=== PATIENT | male | born 1955 | race Asian ===

== ENCOUNTER 2019-01-31 19:06 | Observation (INO) | payer MEDICAID ==
[~2019-01-31] VITALS: Ht 165.1 cm; Wt 71.8 kg
[2019-01-31] MEDS ORDERED: NITROGLYCERIN 2% 1 GM OINT PKT TD STA (21:18)
[2019-01-31] MEDS ORDERED: ASPIRIN 81 MG TAB PO STA (21:18)
[2019-01-31] MEDS ORDERED: NITROGLYCERIN (SL) 0.4 MG TAB SL PRN (21:30)
--- NOTE | 2019-01-31 21:59 | ERD ---
ER Documentation Chief Complaint Chief Complaint cp and sob x 2 days after minimal activity HPI Patient is a 63-year-old male with coronary disease, hypertension, and diabetes who presents with chest pain. The symptoms started 2 days ago. The pain is worsening and left-sided. It radiates on his left arm. He has had no treatment as of yet. Upon review of old medical records this is the patient's first visit to the emergency department. ROS All systems reviewed and are negative except as per history of present illness. PMhx/Soc History of Surgery: Yes (Stentsx3) Hx Cardiac Disorders: Yes (PR, HTN) Hx Alcohol Use: No Hx Substance Use: No Hx Tobacco Use: No Smoking Status: Never smoker FmHx Family History: No coronary disease Physical Exam Vitals Vital Signs Date Temp Pulse Resp B/P (MAP) Pulse Ox O2 O2 Flow FiO2 Time Delivery Rate 01/31/19 78 16 148/78 98 Room Air 21:22 (101) 01/31/19 98.6 78 18 161/76 99 19:33 (104) Physical Exam Const: No acute distress Head: Atraumatic Eyes: Normal Conjunctiva ENT: Normal External Ears, Nose and Mouth. Neck: Full range of motion. No meningismus. Resp: Clear to auscultation bilaterally Cardio: Regular rate and rhythm, no murmurs Abd: Soft, non tender, non distended. Normal bowel sounds Skin: No petechiae or rashes Back: No midline or flank tenderness Ext: No cyanosis, or edema Neur: Awake and alert Psych: Normal Mood and Affect Result Diagram: 01/31/19211701/31/192117 Results 24 hrs Laboratory Tests Test 01/31/19 21:18 White Blood Count 6.4 10^3/ul Red Blood Count 4.72 10^6/ul Hemoglobin 14.6 g/dl Hematocrit 42.1 % Mean Corpuscular Volume 89.2 fl Mean Corpuscular Hemoglobin 30.9 pg Mean Corpuscular Hemoglobin Concent 34.7 g/dl Red Cell Distribution Width 11.7 % Platelet Count 204 10^3/UL Mean Platelet Volume 10.8 fl Immature Granulocytes % 0.500 % Neutrophils % 55.2 % Lymphocytes % 25.2 % Monocytes % 9.1 % Eosinophils % 9.1 % Basophils % 0.9 % Nucleated Red Blood Cells % 0.0 /100WBC Immature Granulocytes # 0.030 10^3/ul Neutrophils # 3.5 10^3/ul Lymphocytes # 1.6 10^3/ul Monocytes # 0.6 10^3/ul Eosinophils # 0.6 10^3/ul Basophils # 0.1 10^3/ul Nucleated Red Blood Cells # 0.0 10^3/ul Sodium Level 139 mmol/L Potassium Level 4.4 mmol/L Chloride Level 103 mmol/L Carbon Dioxide Level 27 mmol/L Anion Gap 9 Blood Urea Nitrogen 12 mg/dl Creatinine 0.87 mg/dl Est Glomerular Filtrat Rate mL/min > 60 mL/min Glucose Level 166 mg/dl Calcium Level 9.9 mg/dl Troponin I < 0.012 ng/ml Current Medications Medications Dose Sig/Adeline Start Time Status Last (Trade) Ordered Route PRN Stop Time Admin Dose Reason Admin Aspirin 162 mg ONCE STAT 01/31/19 DC 01/31/19 (Aspirin) PO 21:18 01/31/19 21:42 21:19 1 inch ONCE STAT 01/31/19 DC 01/31/19 Nitroglycerin TD 21:18 01/31/19 21:43 21:19 (Nitroglyceri n 2% Oint) 1 tab Q5M UP TO 3 01/31/19 01/31/19 Nitroglycerin DOSES PRN 21:30 21:43 SL .CHEST (Nitroglyceri PAIN n (Sl Tab) 0.4 Mg) Procedures/MDM EKG read by me: Rate/Rhythm: Regular rate and rhythm at a normal rate Intervals: Normal Impression: No evidence of ischemia or arrhythmia Chest x-ray read by radiology. Patient is a 63-year-old male presents with multiple cardiac comorbidities. The patient has chest pain. The patient will be admitted to a telemetry observation bed to the care of Dr. Leonard. I am concerned for potential acute coronary syndrome. I doubt pneumonia, pneumothorax, or pulmonary embolism. The patient was given aspirin and nitroglycerin. Departure Diagnosis: Primary Impression: Chest pain Chest pain type: unspecified Qualified Codes: R07.9 - Chest pain, unspecified Condition: WIL Nolen MD January 31, 2019 21:59
[2019-01-31] MEDS ORDERED: ACETAMINOPHEN 325 MG TAB PO PRN (22:00)
[2019-01-31] MEDS ORDERED: ONDANSETRON 4 MG INJ IV PRN (22:00)
[2019-02-01] VITALS (7 sets, daily range): BP systolic 122–146; BP diastolic 68–70; PULSE 65–78; RESP 20; Ht 165.1 cm; Wt 71.8 kg
[2019-02-01] MEDS ORDERED: NACL 0.9% 3 ML SYG IV SCH (00:30)
[2019-02-01] MEDS ORDERED: ALBUTEROL/IPRATROPIUM (NEB) 3 ML AMP HHN PRN (00:30)
[2019-02-01] MEDS ORDERED: ONDANSETRON 4 MG INJ IV PRN (00:30)
[2019-02-01] MEDS ORDERED: NITROGLYCERIN (SL) 0.4 MG TAB SL PRN (00:30)
[2019-02-01] MEDS ORDERED: ACETAMINOPHEN 325 MG TAB PO PRN (00:30)
[2019-02-01] MEDS ORDERED: ATOR40TA68 PO (01:09)
[2019-02-01] MEDS ORDERED: CLOP75TA19 PO (01:09)
[2019-02-01] MEDS ORDERED: OMEP20CA16 PO (01:09)
[2019-02-01] MEDS ORDERED: METF500T24 PO (01:09)
[2019-02-01] MEDS ORDERED: ASPI-535 PO (01:09)
--- NOTE | 2019-02-01 06:29 | HP ---
Date/Time of Note Date/Time of Note DATE: TIME: 23:25 Assessment/Plan VTE Prophylaxis Pharmacological prophylaxis: heparin Lines/Catheters IV Catheter Type (from Nrsg): Saline Lock Assessment/Plan Assessment/Plan 1. Chest pain: Rule out ACS -Admit to telemetry unit -Continue Plavix, aspirin and statin. Add beta-fauzia with parameters. As needed nitro -Serial troponin -2D echo and cardiology consult 2. Type 2 diabetes: Check A1c. Continue metformin 3. Hypertension: Adjust antihypertensive as needed Result Diagram: 02/01/19 0557 01/31/19 2118 Results 24hrs Laboratory Tests Test 01/31/19 21:18 02/01/19 04:07 02/01/19 05:57 White Blood Count 6.4 6.0 Red Blood Count 4.72 4.27 L Hemoglobin 14.6 13.1 L Hematocrit 42.1 38.0 L Mean Corpuscular Volume 89.2 89.0 Mean Corpuscular Hemoglobin 30.9 30.7 Mean Corpuscular Hemoglobin Concent 34.7 34.5 Red Cell Distribution Width 11.7 11.9 Platelet Count 204 178 Mean Platelet Volume 10.8 H 10.9 H Immature Granulocytes % 0.500 H 0.200 Neutrophils % 55.2 56.2 Lymphocytes % 25.2 27.0 Monocytes % 9.1 7.2 Eosinophils % 9.1 H 8.7 H Basophils % 0.9 0.7 Nucleated Red Blood Cells % 0.0 0.0 Immature Granulocytes # 0.030 0.010 Neutrophils # 3.5 3.4 Lymphocytes # 1.6 1.6 Monocytes # 0.6 0.4 Eosinophils # 0.6 H 0.5 Basophils # 0.1 0.0 Nucleated Red Blood Cells # 0.0 0.0 Sodium Level 139 Potassium Level 4.4 Chloride Level 103 Carbon Dioxide Level 27 Anion Gap 9 Blood Urea Nitrogen 12 Creatinine 0.87 Est Glomerular Filtrat Rate mL/min > 60 Glucose Level 166 Calcium Level 9.9 Troponin I < 0.012 < 0.012 Creatine Kinase 44 Creatine Kinase Index 1.8 Creatinine Kinase MB (Mass) 0.77 HPI/ROS Admit Date/Time Admit Date/Time Hx of Present Illness Patient is a 33-year-old male with a history of hypertension, type 2 diabetes and NE/CAD status post stent who presented to ER complaining of chest pain. Pain is mainly left-sided with radiation to left arm and has been going on for about 2 days. In the ER, troponin so far has been negative and EKG without ST-T wave abnormalities PMH/Family/Social Past Medical History Past Surgical Hx: other (HPI) Family History Significant Family History: no pertinent family hx Social History Alcohol Use: none Smoking Status: Never smoker Drug Use: none Exam Constitutional: alert, oriented, well developed Head: normocephalic, atraumatic Eyes: EOMI, PERRL Respiratory: clear to auscultation, normal air movement Cardiovascular: regular rate and rhythm, nl pulses Gastrointestinal: soft, other (Right lower quadrant tenderness elicited on palpation. Patient also with right flank pain) Extremities: normal pulses Medications Current Medications Ondansetron HCl (Zofran Inj) 4 mg ER BRIDGE PRN IV NAUSEA/VOMITING; Start 01/31/19 at 22:00; Stop 02/01/19 at 21:59 Acetaminophen (Tylenol Tab) 650 mg ER BRIDGE PRN PO .MILD PAIN 1-3 OR TEMP; Start 01/31/19 at 22:00; Stop 02/01/19 at 21:59 IV Flush (NS 3 ml) 3 ml PER PROTOCOL IV ; Start 02/01/19 at 00:30 Ondansetron HCl (Zofran Inj) 4 mg Q6H PRN IV NAUSEA/VOMITING; Start 02/01/19 at 00:30 Aspirin (Aspirin) 81 mg DAILY PO ; Start 02/01/19 at 09:00 Nitroglycerin (Nitroglycerin (Sl Tab) 0.4 Mg) 1 tab Q5M PRN SL .CHEST PAIN; Start 02/01/19 at 00:30 Acetaminophen (Tylenol Tab) 650 mg Q6H PRN PO .PAIN 1-3 OR TEMP; Start 02/01/19 at 00:30 Enoxaparin Sodium (Lovenox) 40 mg DAILY SC ; Start 02/01/19 at 09:00 Albuterol/ Ipratropium (Duoneb) 3 ml Q2H RESP THERAPY PRN HHN SHORTNESS OF BREATH; Start 02/01/19 at 00:30 Coded Allergies: No Known Allergy (Unverified , 02/01/19) Social History Smoking Status: Never smoker Exam/Review of Systems Vital Signs Vitals Vital Signs Date Temp Pulse Resp B/P (MAP) Pulse Ox O2 O2 Flow FiO2 Time Delivery Rate 02/01/19 61 16 107/67 98 Room Air 06:12 (80) 01/31/19 98.6 19:33 TERI SIMS MD February 01, 2019 06:29
[2019-02-01] MEDS: ACCU-CHEK XX SCH ×3 (07:00→22:24)
[2019-02-01] MEDS: ASPIRIN 81 MG TAB PO SCH (08:19)
[2019-02-01] MEDS: CLOPIDOGREL 75 MG TAB PO SCH (08:19)
[2019-02-01] MEDS: ENOXAPARIN 40 MG/0.4 ML SYG SC SCH (08:20)
[2019-02-01] MEDS: PANTOPRAZOLE (EC) 40 MG TAB PO SCH (08:20)
[2019-02-01] MEDS: metFORMIN 500 MG TAB PO SCH (08:20)
[2019-02-01] MEDS ORDERED: NON-FORMULARY/PATIENT OWN MED (Omeprazole* 20 MG) PO SCH (09:00)
[2019-02-01] MEDS ORDERED: METOPROLOL 25 MG TAB PO SCH ×2 (09:00→21:00)
--- NOTE | 2019-02-01 14:25 | PN ---
Date/Time of Note Date/Time of Note DATE: 02/01/19 TIME: 14:20 Assessment/Plan VTE Prophylaxis SCD applied (from Nsg): Yes Pharmacological prophylaxis: LMWH Lines/Catheters IV Catheter Type (from Nrsg): Peripheral IV Urinary Cath still in place: No Assessment/Plan Assessment/Plan 1. Angina pectoris, negtive troponin, cardiology consultation 2. CAD, s/p PCI/stents(one stent 7 years ago, 2 stents 3 years ago in [place]), on aspirin, plavix, lipitor, increase metoprolol, follow up with cardiology 3. Type 2 diabetes: Check A1c. Continue metformin, ISS 4. Hypertension, controlled 5. Dyslipidemia, on statin 6, DVT prophylaxis: lovenox Result Diagram: 02/01/19 0557 02/01/19 0557 Results 24hrs Laboratory Tests Test 01/31/19 21:18 02/01/19 04:07 02/01/19 05:57 02/01/19 08:13 White Blood Count 6.4 6.0 Red Blood Count 4.72 4.27 L Hemoglobin 14.6 13.1 L Hematocrit 42.1 38.0 L Mean Corpuscular Volume 89.2 89.0 Mean Corpuscular 30.9 30.7 Hemoglobin Mean Corpuscular 34.7 34.5 Hemoglobin Concent Red Cell Distribution 11.7 11.9 Width Platelet Count 204 178 Mean Platelet Volume 10.8 H 10.9 H Immature Granulocytes % 0.500 H 0.200 Neutrophils % 55.2 56.2 Lymphocytes % 25.2 27.0 Monocytes % 9.1 7.2 Eosinophils % 9.1 H 8.7 H Basophils % 0.9 0.7 Nucleated Red Blood 0.0 0.0 Cells % Immature Granulocytes # 0.030 0.010 Neutrophils # 3.5 3.4 Lymphocytes # 1.6 1.6 Monocytes # 0.6 0.4 Eosinophils # 0.6 H 0.5 Basophils # 0.1 0.0 Nucleated Red Blood 0.0 0.0 Cells # Sodium Level 139 139 Potassium Level 4.4 4.3 Chloride Level 103 105 Carbon Dioxide Level 27 25 Anion Gap 9 9 Blood Urea Nitrogen 12 12 Creatinine 0.87 0.85 Est Glomerular Filtrat > 60 > 60 Rate mL/min Glucose Level 166 153 Calcium Level 9.9 9.4 Troponin I < 0.012 < 0.012 Creatine Kinase 44 Creatine Kinase Index 1.8 Creatinine Kinase MB 0.77 (Mass) Hemoglobin A1c 8.0 H Magnesium Level 1.6 L Total Bilirubin 1.2 Direct Bilirubin 0.00 Indirect Bilirubin 1.2 H Aspartate Amino 19 Transf (AST/SGOT) Alanine 27 Aminotransferase (ALT/SG PT) Alkaline Phosphatase 50 Total Protein 6.4 Albumin 3.8 Globulin 2.60 Albumin/Globulin Ratio 1.46 Triglycerides Level 75 Cholesterol Level 101 LDL Cholesterol, 60 Calculated HDL Cholesterol 26 L Cholesterol/HDL Ratio 3.8 Thyroid Stimulating 1.030 Hormone (TSH) Bedside Glucose 163 Test 02/01/19 09:56 02/01/19 13:36 Creatine Kinase 41 Creatine Kinase Index 2.1 Creatinine Kinase MB 0.88 (Mass) Troponin I < 0.012 Bedside Glucose 179 Subjective 24 Hr Interval Summary Free Text/Dictation left sided chest pain, usually on walking, no shortness of breath Exam/Review of Systems Exam Vitals Vital Signs Date Temp Pulse Resp B/P (MAP) Pulse Ox O2 O2 Flow FiO2 Time Delivery Rate 02/01/19 68 12:37 02/01/19 98.5 20 146/70 98 Room Air 11:25 (95) Constitutional: alert, oriented, well developed Psych: no complaints, nl mood/affect Head: normocephalic, atraumatic Eyes: nl conjunctiva, EOMI, nl lids, PERRL ENMT: nl external ears & nose, nl lips & teeth, nl nasal mucosa & septum Neck: supple, non-tender Respiratory: clear to auscultation, normal air movement; No congested cough, No crackles/rales, No diminished breath sounds, No intercostal retraction, No labored breathing, No respirations, No tactile fremitus, No wheezing, No other Cardiovascular: regular rate and rhythm, nl pulses; No bruits, No diastolic murmur, No edema, No gallop, No irregular rhythm, No jugular venous distention (JVD), No murmurs/extra sounds, No rub, No systolic murmur, No S3, No S4, No other Gastrointestinal: soft, nl liver, spleen; No non-tender, No ascites, No bowel sounds, No distended, No firm, No hepatomegaly, No mass, No rebound or guarding, No splenomegaly, No surgical scars, No tender, No other Musculoskeletal: nl extremities to inspection Extremities: normal pulses; No calf tenderness, No cyanosis, No clubbing, No edema, No pitting pedal edema, No palpable cord, No tenderness, No other Neurological: [employer] II-XII intact, nl mental status, nl speech, nl strength Skin: nl turgor Results Results 24hrs Laboratory Tests Test 01/31/19 21:18 02/01/19 04:07 02/01/19 05:57 02/01/19 08:13 White Blood Count 6.4 6.0 Red Blood Count 4.72 4.27 L Hemoglobin 14.6 13.1 L Hematocrit 42.1 38.0 L Mean Corpuscular Volume 89.2 89.0 Mean Corpuscular 30.9 30.7 Hemoglobin Mean Corpuscular 34.7 34.5 Hemoglobin Concent Red Cell Distribution 11.7 11.9 Width Platelet Count 204 178 Mean Platelet Volume 10.8 H 10.9 H Immature Granulocytes % 0.500 H 0.200 Neutrophils % 55.2 56.2 Lymphocytes % 25.2 27.0 Monocytes % 9.1 7.2 Eosinophils % 9.1 H 8.7 H Basophils % 0.9 0.7 Nucleated Red Blood 0.0 0.0 Cells % Immature Granulocytes # 0.030 0.010 Neutrophils # 3.5 3.4 Lymphocytes # 1.6 1.6 Monocytes # 0.6 0.4 Eosinophils # 0.6 H 0.5 Basophils # 0.1 0.0 Nucleated Red Blood 0.0 0.0 Cells # Sodium Level 139 139 Potassium Level 4.4 4.3 Chloride Level 103 105 Carbon Dioxide Level 27 25 Anion Gap 9 9 Blood Urea Nitrogen 12 12 Creatinine 0.87 0.85 Est Glomerular Filtrat > 60 > 60 Rate mL/min Glucose Level 166 153 Calcium Level 9.9 9.4 Troponin I < 0.012 < 0.012 Creatine Kinase 44 Creatine Kinase Index 1.8 Creatinine Kinase MB 0.77 (Mass) Hemoglobin A1c 8.0 H Magnesium Level 1.6 L Total Bilirubin 1.2 Direct Bilirubin 0.00 Indirect Bilirubin 1.2 H Aspartate Amino 19 Transf (AST/SGOT) Alanine 27 Aminotransferase (ALT/SG PT) Alkaline Phosphatase 50 Total Protein 6.4 Albumin 3.8 Globulin 2.60 Albumin/Globulin Ratio 1.46 Triglycerides Level 75 Cholesterol Level 101 LDL Cholesterol, 60 Calculated HDL Cholesterol 26 L Cholesterol/HDL Ratio 3.8 Thyroid Stimulating 1.030 Hormone (TSH) Bedside Glucose 163 Test 02/01/19 09:56 02/01/19 13:36 Creatine Kinase 41 Creatine Kinase Index 2.1 Creatinine Kinase MB 0.88 (Mass) Troponin I < 0.012 Bedside Glucose 179 Medications Medication Current Medications Ondansetron HCl (Zofran Inj) 4 mg ER BRIDGE PRN IV NAUSEA/VOMITING; Start 01/31/19 at 22:00; Stop 02/01/19 at 21:59 Acetaminophen (Tylenol Tab) 650 mg ER BRIDGE PRN PO .MILD PAIN 1-3 OR TEMP; Start 01/31/19 at 22:00; Stop 02/01/19 at 21:59 IV Flush (NS 3 ml) 3 ml PER PROTOCOL IV ; Start 02/01/19 at 00:30 Ondansetron HCl (Zofran Inj) 4 mg Q6H PRN IV NAUSEA/VOMITING; Start 02/01/19 at 00:30 Aspirin (Aspirin) 81 mg DAILY PO Last administered on 02/01/19at 08:19; Admin Dose 81 MG; Start 02/01/19 at 09:00 Nitroglycerin (Nitroglycerin (Sl Tab) 0.4 Mg) 1 tab Q5M PRN SL .CHEST PAIN; Start 02/01/19 at 00:30 Acetaminophen (Tylenol Tab) 650 mg Q6H PRN PO .PAIN 1-3 OR TEMP; Start 02/01/19 at 00:30 Enoxaparin Sodium (Lovenox) 40 mg DAILY SC Last administered on 02/01/19at 08:20; Admin Dose 40 MG; Start 02/01/19 at 09:00 Albuterol/ Ipratropium (Duoneb) 3 ml Q2H RESP THERAPY PRN HHN SHORTNESS OF BREATH; Start 02/01/19 at 00:30 Atorvastatin Calcium (Lipitor) 40 mg QHS PO ; Start 02/01/19 at 21:00 Clopidogrel Bisulfate (plaVIX) 75 mg DAILY PO Last administered on 02/01/19at 08:19; Admin Dose 75 MG; Start 02/01/19 at 09:00 Metformin HCl (Glucophage) 500 mg WITH BREAKFAST PO Last administered on 02/01/19at 08:20; Admin Dose 500 MG; Start 02/01/19 at 08:00 Diagnostic Test (Pha) (Accu-Chek) 1 ea AC MEALS AND BEDTIME XX Last administe red on 02/01/19at 07:00; Admin Dose 1 EA; Start 02/01/19 at 07:00 Metoprolol Tartrate (Lopressor) 12.5 mg Q12 PO Last administered on 02/01/19 08:21; Admin Dose 12.5 MG; Start 02/01/19 at 09:00 Pantoprazole (Protonix Tab) 40 mg DAILY@06 PO Last administered on 02/01/19 08:20; Admin Dose 40 MG; Start 02/01/19 at 07:30 JUAN CARLOS HITCHCOCK MD February 01, 2019 14:25
--- NOTE | 2019-02-01 15:48 | RADRPT ---
Echocardiogram Report Patient Name: IKER RAMIREZPatient ID: [id number] : [id number] ([id number] )Study Date: 02/01/2019 1:57:24 PM Gender: MAccession #: [id number] Tech: Ángel Allen [facility] Location: [id number] Ref.Physician: TERI SIMS Height(Cm): BSA: Weight(Kg): Quality: AdequateAccount #: Procedures: Echocardiographic Report: Transthoracic echocardiogram with complete 2D, M-Mode, and doppler examination. Indications: Chest Pain. Measurements: 2D/M Mode Doppler Measurement Value Normal Range Measurement Value Normal Range LVIDd 2D 5.4 [ 4.2 - 5.8 ] cm AV Peak Rj 1.2 [ 100.0 - 170.0 ] cm/sec LVIDs 2D 4.5 [ 2.5 - 4.0 ] cm AV Peak PG 6.0 [ 2.0 - 9.0 ] mmHg LVPWd 2D 1.0 [ 0.6 - 1.0 ] cm AI Peak PG 54.0 mmHg IVSd 2D 0.9 [ 0.6 - 1.0 ] cm AI Peak Rj 3.7 cm/sec AoR Diam 2D 2.9 [ 2.6 - 3.4 ] cm AI PHT 594.0 msec EDV 2D 142.0 [ 62.0 - 150.0 ] ml LVOT Peak Rj 1.0 [ 70.0 - 110.0 ] cm/sec ESV 2D 90.5 [ 21.0 - 61.0 ] ml LVOT Peak PG 4.0 [ 2.0 - 6.0 ] mmHg EF 2D 36.3 [ 52.0 - 72.0 ] percent MV E Peak Rj 0.7 [ 60.0 - 130.0 ] cm/sec LA Dimen 2D 4.3 [ 3.0 - 4.0 ] cm MV A Peak Rj 0.6 [ 100.0 - 120.0 ] cm/sec MV E/A 1.1 [ 0.8 - 1.5 ] ratio MV Decel Time 197 [ 104 - 258 ] msec MV E/A 1.1 [ 0.8 - 1.5 ] ratio TR Peak Rj 2.6 [ 100.0 - 280.0 ] cm/sec TR Peak PG 28.0 mmHg RVSP 31.0 [ 10.0 - 36.0 ] mmHg RA Pressure 3.0 mmHg Findings: Left Ventricle: Normal left ventricular cavity size. Normal left ventricular wall thickness. Moderate left ventricular systolic dysfunction. Ejection fraction is visually estimated at 40 %. Tissue Doppler/Mitral Doppler indices are consistent with pseudonormalization with mildly elevated left atrial pressure (Stage II diastolic dysfunction). These segments of the LV are akinetic inferior base segment, apical cap and apical septum segment. Right Ventricle: Normal right ventricular size. Normal right ventricular systolic function. Left Atrium: There is mild enlargement of left atrium. Right Atrium: The right atrium is normal in size. Mitral Valve: Mitral valve leaflets appear mildly thickened. Mild mitral annular calcification. Mild mitral valve regurgitation. Aortic Valve: No hemodynamically significant aortic stenosis by doppler. Aortic cusps appear mildly calcified. Trace aortic valve regurgitation. Tricuspid Valve: Normal appearance of the tricuspid valve. Estimated peak PA systolic pressure 31 mmHg. There is mild tricuspid regurgitation. Pulmonic Valve: Pulmonic valve not well visualized. Pericardium: Normal pericardium with no significant pericardial effusion. Aorta: Normal aortic root. IVC: Normal size and normal respiratory collapse consistent with normal right atrial pressure. Conclusions: Moderately reduced left ventricular systolic function with multi vessel distribution wall motion abnormalities as described. Pseudonormal diastolic function. Mild left atrial enlargement. Mild mitral and tricuspid regurgitation with borderline pulmonary pressures. Trace aortic regurgitation. Electronically Signed By: Rochelle Odell 2019-02-01 15:48:27 PDT
[2019-02-01] MEDS ORDERED: AMLODIPINE 5 MG TAB PO SCH (16:00)
--- NOTE | 2019-02-01 16:00 | CONS ---
Assessment/Plan Assessment/Plan Hospital Course (Demo Recall) 63 yo with known CAD, and echo demonstrating EF 40% with regional wall motion abnormalities, presents with 1 hour of chest pain yesterday and a month of dyspnea on exertion. Impression: Unstable angina Known CAD Ischemic cardiomyopathy, EF 40% on echo here with multi vessel distribution wall motion abnormalities Diabetes mellitus type 2, on insulin Recommendations: Lexiscan nuclear stress test tomorrow Continue home asa, clopidogrel, statin Stop amlodipine-olmesartan, replace with carvedilol and losartan, which are evidence based for his ischemic cardiomyopathy Further plans to come in place after stress test, he may need a cardiac cath Consultation Date/Type/Reason Admit Date/Time Date of Consultation: February 01, 2019 Type of Consult Cardiology Reason for Consultation chest pain Requesting Provider: JUAN CARLOS HITCHCOCK MD Date/Time of Note DATE: 02/01/19 TIME: 15:53 Hx of Present Illness 63 yo with history of CAD, PCI x 3, most recent about three years ago presents with chest pain starting last night. The pain lasted for about an hour and was midsternal. At present he has a mild lingering discomfort. He and his just moved here from [place] one month ago; all prior cardiac care was in [place]. He has an appointment with a fabric normalizer on 02/10/19. He is not very active, is dyspneic on exertion for the past one month. He shows me his medications; he has several prescription bottles from his PCP, including asa 81, clopidogrel 75, atorvastatin 40, metformin, omeprazole, and a blister pack of amlodipine-olmesartan (which was not reconciled by pharmacy) History obtained with assistance of patient's daughter Trevon who interpreted via telephone. Constitutional: no complaints Eyes: no complaints ENT: no complaints Respiratory: shortness of breath Cardiovascular: chest pain Gastrointestinal: no complaints Genitourinary: no complaints Musculoskeletal: no complaints Skin: no complaints Neurologic: no complaints Endocrine: no complaints Lymphatic: no complaints Psychological: no complaints Immunologic: no complaints Past Medical History Medical History: coronary artery disease, GERD, high cholesterol Home Meds Reported Medications Atorvastatin* (Atorvastatin*) 40 Mg Tablet, 40 MG PO QHS, #30 TAB 02/01/19 Omeprazole* (Omeprazole*) 20 Mg Capsule.dr, 20 MG PO DAILY, #30 CAP 02/01/19 Clopidogrel Bisulfate* (Clopidogrel Bisulfate*) 75 Mg Tablet, 75 MG PO DAILY, #30 TAB 02/01/19 Aspirin Ec (Aspir 81) 81 Mg Tablet.dr, 81 MG PO DAILY, #30 TAB 02/01/19 Metformin Hcl* (Metformin Hcl*) 500 Mg Tablet, 500 MG PO WITH BREAKFAST, #30 TAB 02/01/19 Medications Current Medications IV Flush (NS 3 ml) 3 ml PER PROTOCOL IV ; Start 02/01/19 at 00:30 Ondansetron HCl (Zofran Inj) 4 mg Q6H PRN IV NAUSEA/VOMITING; Start 02/01/19 at 00:30 Aspirin (Aspirin) 81 mg DAILY PO Last administered on 02/01/19at 08:19; Admin Dose 81 MG; Start 02/01/19 at 09:00 Nitroglycerin (Nitroglycerin (Sl Tab) 0.4 Mg) 1 tab Q5M PRN SL .CHEST PAIN; Start 02/01/19 at 00:30 Acetaminophen (Tylenol Tab) 650 mg Q6H PRN PO .PAIN 1-3 OR TEMP; Start 02/01/19 at 00:30 Enoxaparin Sodium (Lovenox) 40 mg DAILY SC Last administered on 02/01/19at 08:20; Admin Dose 40 MG; Start 02/01/19 at 09:00 Albuterol/ Ipratropium (Duoneb) 3 ml Q2H RESP THERAPY PRN HHN SHORTNESS OF BREATH; Start 02/01/19 at 00:30 Atorvastatin Calcium (Lipitor) 40 mg QHS PO ; Start 02/01/19 at 21:00 Clopidogrel Bisulfate (plaVIX) 75 mg DAILY PO Last administered on 02/01/19at 08:19; Admin Dose 75 MG; Start 02/01/19 at 09:00 Metformin HCl (Glucophage) 500 mg WITH BREAKFAST PO Last administered on 02/01/19at 08:20; Admin Dose 500 MG; Start 02/01/19 at 08:00 Diagnostic Test (Pha) (Accu-Chek) 1 ea AC MEALS AND BEDTIME XX Last administered on 02/01/19at 07:00; Admin Dose 1 EA; Start 02/01/19 at 07:00 Pantoprazole (Protonix Tab) 40 mg DAILY@06 PO Last administered on 02/01/19 08:20; Admin Dose 40 MG; Start 02/01/19 at 07:30 Metoprolol Tartrate (Lopressor) 25 mg Q12 PO ; Start 02/01/19 at 21:00 Amlodipine Besylate (Norvasc) 5 mg DAILY PO ; Start 02/01/19 at 16:00 Allergies: Coded Allergies: No Known Allergy (Unverified , 02/01/19) Past Surgical History Past Surgical Hx: angioplasty (PCI x 3 in [place], most recently about 3 years ago) Family History Significant Family History: no pertinent family hx Social History Alcohol Use: none Smoking Status: Never smoker Drug Use: none Exam/Review of Systems Vital Signs Vitals Vital Signs Date Temp Pulse Resp B/P (MAP) Pulse Ox O2 O2 Flow FiO2 Time Delivery Rate 02/01/19 70 14:43 02/01/19 98.5 20 146/70 98 Room Air 11:25 (95) Exam Constitutional: alert, oriented, well developed Psych: nl mood/affect Head: normocephalic, atraumatic Eyes: nl conjunctiva, EOMI, nl lids, nl sclera ENMT: nl external ears & nose, nl lips & teeth Neck: supple; No jvd, No bruits Respiratory: clear to auscultation, normal air movement Cardiovascular: regular rate and rhythm, nl pulses; No jugular venous distention (JVD), No murmurs/extra sounds Gastrointestinal: soft, nl liver, spleen, non-tender Musculoskeletal: nl extremities to inspection Extremities: normal pulses; No edema Neurological: nl mental status, nl speech Skin: No rash or lesions Lymph: nl lymph nodes Labs Result Diagram: 02/01/19 0557 02/01/19 0557 Results 24hrs Laboratory Tests Test 01/31/19 21:18 02/01/19 04:07 02/01/19 05:57 02/01/19 08:13 White Blood Count 6.4 6.0 Red Blood Count 4.72 4.27 L Hemoglobin 14.6 13.1 L Hematocrit 42.1 38.0 L Mean Corpuscular Volume 89.2 89.0 Mean Corpuscular 30.9 30.7 Hemoglobin Mean Corpuscular 34.7 34.5 Hemoglobin Concent Red Cell Distribution 11.7 11.9 Width Platelet Count 204 178 Mean Platelet Volume 10.8 H 10.9 H Immature Granulocytes % 0.500 H 0.200 Neutrophils % 55.2 56.2 Lymphocytes % 25.2 27.0 Monocytes % 9.1 7.2 Eosinophils % 9.1 H 8.7 H Basophils % 0.9 0.7 Nucleated Red Blood 0.0 0.0 Cells % Immature Granulocytes # 0.030 0.010 Neutrophils # 3.5 3.4 Lymphocytes # 1.6 1.6 Monocytes # 0.6 0.4 Eosinophils # 0.6 H 0.5 Basophils # 0.1 0.0 Nucleated Red Blood 0.0 0.0 Cells # Sodium Level 139 139 Potassium Level 4.4 4.3 Chloride Level 103 105 Carbon Dioxide Level 27 25 Anion Gap 9 9 Blood Urea Nitrogen 12 12 Creatinine 0.87 0.85 Est Glomerular Filtrat > 60 > 60 Rate mL/min Glucose Level 166 153 Calcium Level 9.9 9.4 Troponin I < 0.012 < 0.012 Creatine Kinase 44 Creatine Kinase Index 1.8 Creatinine Kinase MB 0.77 (Mass) Hemoglobin A1c 8.0 H Magnesium Level 1.6 L Total Bilirubin 1.2 Direct Bilirubin 0.00 Indirect Bilirubin 1.2 H Aspartate Amino 19 Transf (AST/SGOT) Alanine 27 Aminotransferase (ALT/SG PT) Alkaline Phosphatase 50 Total Protein 6.4 Albumin 3.8 Globulin 2.60 Albumin/Globulin Ratio 1.46 Triglycerides Level 75 Cholesterol Level 101 LDL Cholesterol, 60 Calculated HDL Cholesterol 26 L Cholesterol/HDL Ratio 3.8 Thyroid Stimulating 1.030 Hormone (TSH) Bedside Glucose 163 Test 02/01/19 09:56 02/01/19 13:36 Creatine Kinase 41 Creatine Kinase Index 2.1 Creatinine Kinase MB 0.88 (Mass) Troponin I < 0.012 Bedside Glucose 179 Imaging Imaging NSR with evidence of septal infarct Medications Medications Current Medications IV Flush (NS 3 ml) 3 ml PER PROTOCOL IV ; Start 02/01/19 at 00:30 Ondansetron HCl (Zofran Inj) 4 mg Q6H PRN IV NAUSEA/VOMITING; Start 02/01/19 at 00:30 Aspirin (Aspirin) 81 mg DAILY PO Last administered on 02/01/19at 08:19; Admin Dose 81 MG; Start 02/01/19 at 09:00 Nitroglycerin (Nitroglycerin (Sl Tab) 0.4 Mg) 1 tab Q5M PRN SL .CHEST PAIN; Start 02/01/19 at 00:30 Acetaminophen (Tylenol Tab) 650 mg Q6H PRN PO .PAIN 1-3 OR TEMP; Start 02/01/19 at 00:30 Enoxaparin Sodium (Lovenox) 40 mg DAILY SC Last administered on 02/01/19at 08:20; Admin Dose 40 MG; Start 02/01/19 at 09:00 Albuterol/ Ipratropium (Duoneb) 3 ml Q2H RESP THERAPY PRN HHN SHORTNESS OF BREATH; Start 02/01/19 at 00:30 Atorvastatin Calcium (Lipitor) 40 mg QHS PO ; Start 02/01/19 at 21:00 Clopidogrel Bisulfate (plaVIX) 75 mg DAILY PO Last administered on 02/01/19at 08:19; Admin Dose 75 MG; Start 02/01/19 at 09:00 Metformin HCl (Glucophage) 500 mg WITH BREAKFAST PO Last administered on 02/01/19at 08:20; Admin Dose 500 MG; Start 02/01/19 at 08:00 Diagnostic Test (Pha) (Accu-Chek) 1 ea AC MEALS AND BEDTIME XX Last administered on 02/01/19at 07:00; Admin Dose 1 EA; Start 02/01/19 at 07:00 Pantoprazole (Protonix Tab) 40 mg DAILY@06 PO Last administered on 02/01/19 08:20; Admin Dose 40 MG; Start 02/01/19 at 07:30 Metoprolol Tartrate (Lopressor) 25 mg Q12 PO ; Start 02/01/19 at 21:00 Amlodipine Besylate (Norvasc) 5 mg DAILY PO ; Start 02/01/19 at 16:00 LAYA DUNLAP February 01, 2019 16:00
[2019-02-01] MEDS: LOSARTAN 25 MG TAB PO SCH (17:56)
[2019-02-01] MEDS ORDERED: ATORVASTATIN 40 MG TAB PO SCH (21:00)
[2019-02-02] VITALS (10 sets, daily range): BP systolic 106–147; BP diastolic 63–73; PULSE 55–82; RESP 18
[2019-02-02] MEDS: PANTOPRAZOLE (EC) 40 MG TAB PO SCH (06:28)
[2019-02-02] MEDS: ACCU-CHEK XX SCH ×4 (06:31→18:10)
[2019-02-02] MEDS ORDERED: REGADENOSON 0.4 MG/5 ML SYG ONE (08:58)
[2019-02-02] MEDS ORDERED: PANTOPRAZOLE (EC) 40 MG TAB PO SCH (09:00)
--- NOTE | 2019-02-02 09:42 | CONS ---
Assessment/Plan Assessment/Plan Hospital Course (Demo Recall) 63 yo with known CAD, and echo demonstrating EF 40% with regional wall motion abnormalities, presents with 1 hour of chest pain yesterday and a month of dyspnea on exertion. Impression: Chest pain, resolved Known CAD Ischemic cardiomyopathy, EF 40% on echo here with multi vessel distribution wall motion abnormalities Diabetes mellitus type 2 Recommendations: Lexiscan nuclear stress test performed, awaiting second set of images and radiology interpretation Continue home asa, clopidogrel, statin Stop amlodipine-olmesartan, replace with carvedilol and losartan, which are evidence based for his ischemic cardiomyopathy If stress test negative, home today to follow with outpatient marble helper, if significant ischemia then will cath Consultation Date/Type/Reason Admit Date/Time January 31, 2019 at 21:57 Initial Consult Date 02/01/19 Type of Consult Cardiology Requesting Provider: JUAN CARLOS HITCHCOCK MD Date/Time of Note DATE: 02/02/19 TIME: 09:39 24 HR Interval Summary Free Text/Dictation This morning he is pain free, patient seen in stress testing. Exam/Review of Systems Vital Signs Vitals Vital Signs Date Temp Pulse Resp B/P (MAP) Pulse Ox O2 O2 Flow FiO2 Time Delivery Rate 02/02/19 55 09:01 02/02/19 97.6 18 127/71 97 Room Air 07:22 (89) Intake and Output 02/01/19 02/01/19 02/02/19 1515:00 23:00 07:00 IntakeIntake Total 600 ml 450 ml BalanceBalance 600 ml 450 ml Exam Constitutional: alert, oriented, well developed Psych: nl mood/affect Head: normocephalic, atraumatic Eyes: EOMI, nl lids, nl sclera ENMT: nl external ears & nose, nl lips & teeth Neck: supple; No jvd, No bruits Respiratory: clear to auscultation, normal air movement Cardiovascular: regular rate and rhythm; No murmurs/extra sounds Gastrointestinal: soft, non-tender Musculoskeletal: nl extremities to inspection Extremities: No edema Neurological: nl mental status, nl speech Skin: nl turgor; No rash or lesions Labs Result Diagram: 02/02/19 0616 02/02/19 0616 Results 24hrs Laboratory Tests Test 02/01/19 09:56 02/01/19 13:36 02/01/19 17:31 02/01/19 22:17 Creatine Kinase 41 Creatine Kinase Index 2.1 Creatinine Kinase MB 0.88 (Mass) Troponin I < 0.012 Bedside Glucose 179 180 187 Test 02/02/19 06:16 02/02/19 06:29 02/02/19 08:15 White Blood Count 6.9 Red Blood Count 4.77 Hemoglobin 14.6 Hematocrit 43.6 Mean Corpuscular Volume 91.4 Mean Corpuscular 30.6 Hemoglobin Mean Corpuscular 33.5 Hemoglobin Concent Red Cell Distribution 11.8 Width Platelet Count 231 # Mean Platelet Volume 11.9 H Immature Granulocytes % 0.400 Neutrophils % 52.2 Lymphocytes % 28.7 Monocytes % 8.2 Eosinophils % 9.8 H Basophils % 0.7 Nucleated Red Blood 0.0 Cells % Immature Granulocytes # 0.030 Neutrophils # 3.6 Lymphocytes # 2.0 Monocytes # 0.6 Eosinophils # 0.7 H Basophils # 0.1 Nucleated Red Blood 0.0 Cells # Sodium Level 140 Potassium Level 4.3 Chloride Level 101 Carbon Dioxide Level 29 Anion Gap 10 Blood Urea Nitrogen 14 Creatinine 1.01 Est Glomerular Filtrat > 60 Rate mL/min Glucose Level 189 Calcium Level 9.9 Phosphorus Level 4.1 Magnesium Level 1.7 Bedside Glucose 181 169 Medications Medications Current Medications IV Flush (NS 3 ml) 3 ml PER PROTOCOL IV ; Start 02/01/19 at 00:30 Ondansetron HCl (Zofran Inj) 4 mg Q6H PRN IV NAUSEA/VOMITING; Start 02/01/19 at 00:30 Aspirin (Aspirin) 81 mg DAILY PO Last administered on 02/01/19at 08:19; Admin Dose 81 MG; Start 02/01/19 at 09:00 Nitroglycerin (Nitroglycerin (Sl Tab) 0.4 Mg) 1 tab Q5M PRN SL .CHEST PAIN; Start 02/01/19 at 00:30 Acetaminophen (Tylenol Tab) 650 mg Q6H PRN PO .PAIN 1-3 OR TEMP; Start 02/01/19 at 00:30 Enoxaparin Sodium (Lovenox) 40 mg DAILY SC Last administered on 02/01/19at 08:20; Admin Dose 40 MG; Start 02/01/19 at 09:00 Albuterol/ Ipratropium (Duoneb) 3 ml Q2H RESP THERAPY PRN HHN SHORTNESS OF BREATH; Start 02/01/19 at 00:30 Atorvastatin Calcium (Lipitor) 40 mg QHS PO Last administered on 02/01/19 21:11; Admin Dose 40 MG; Start 02/01/19 at 21:00 Clopidogrel Bisulfate (plaVIX) 75 mg DAILY PO Last administered on 02/01/19 08:19; Admin Dose 75 MG; Start 02/01/19 at 09:00 Metformin HCl (Glucophage) 500 mg WITH BREAKFAST PO Last administered on 02/01/19 08:20; Admin Dose 500 MG; Start 02/01/19 at 08:00 Diagnostic Test (Pha) (Accu-Chek) 1 ea AC MEALS AND BEDTIME XX Last a dministered on 02/02/19 08:16; Admin Dose 1 EA; Start 02/01/19 at 07:00 Pantoprazole (Protonix Tab) 40 mg DAILY@06 PO Last administered on 02/02/19 06:28; Admin Dose 40 MG; Start 02/01/19 at 07:30 Carvedilol (Coreg) 3.125 mg BID PO Last administered on 02/01/19 21:11; Admin Dose 3.125 MG; Start 02/01/19 at 21:00 Losartan Potassium (Cozaar) 25 mg DAILY PO Last administered on 02/01/19 17:56; Admin Dose 25 MG; Start 02/01/19 at 17:00 LAYA DUNLAP February 02, 2019 09:41
[2019-02-02] MEDS: ASPIRIN 81 MG TAB PO SCH (10:42)
[2019-02-02] MEDS: LOSARTAN 25 MG TAB PO SCH (10:42)
[2019-02-02] MEDS: CLOPIDOGREL 75 MG TAB PO SCH (10:43)
[2019-02-02] MEDS: metFORMIN 500 MG TAB PO SCH (10:43)
[2019-02-02] MEDS: ENOXAPARIN 40 MG/0.4 ML SYG SC SCH (10:47)
[2019-02-02] MEDS ORDERED: CARV3.1260 PO (15:22)
[2019-02-02] MEDS ORDERED: LOSA25TA2 PO (15:22)
--- NOTE | 2019-02-02 15:24 | DS ---
Date/Time of Note Date/Time of Note DATE: 02/02/19 TIME: 15:23 Discharge Summary Admission/Discharge Info Admit Date/Time January 31, 2019 at 21:57 Discharge Date/Time Discharge Diagnosis 1. Chest pain with negative troponin, cardiology consultation 2. CAD, s/p PCI/stents(one stent 7 years ago, 2 stents 3 years ago in [place]), on aspirin, plavix, lipitor, coreg follow up with cardiology 3. CHF, systolic, chronic, on losartan and coreg, follow up with cardiology 4. Ischemic cardiomyopathy 5. Type 2 diabetes: Check A1c. Continue metformin, ISS 6. Hypertension, controlled 7. Dyslipidemia, on statin Patient Condition: Stable Procedures PROCEDURE: Lexiscan myocardial perfusion study CLINICAL INDICATION: 63 -year-old patient with coronary artery disease, complaining of chest pain. TECHNIQUE: Lexiscan 0.4 mg intravenously separate acquisition gated myocardial perfusion SPECT using Tc 99m Myoview 29.3 mCi intravenously at stress and Tc-99m Myoview, 9.6 mCi intravenously at rest was performed using the rest/stress sequence. Poststress Myoview SPECT images were obtained in the supine position. COMPARISON: No prior studies. FINDINGS: Perfusion images reveal a large size moderate in degree nonreversible perfusion defect in the apical, distal to mid anterior, distal septal and inferior menjivar. Lexiscan post stress gated SPECT images demonstrate moderate hypokinesis of the left ventricle. IMPRESSION: 1. The type and distribution of the scintigraphic abnormalities are most consistent with a large size nonreversible perfusion defect in the apex, distal to mid anterior, distal septal and inferior menjivar likely due to myocardial infarction. 2. Moderate hypokinesis of the left ventricle. 3. The left ventricle ejection fraction at stress is 35%. RPTAT: HH .Lissy Persaud MD, MD Date Time Electronically viewed and signed by .Lissy Persaud MD, MD on 02/02/2019 11:26 Echocardiogram Report Patient Name: IKER RAMIREZ : 1955 (64y ) Study Date: 02/01/2019 1:57:24 PM Gender: M Tech: Ángel Allen [facility] Location: 638 Ref.Physician: TERI SIMS Height(Cm): BSA: Weight(Kg): Quality: Adequate Account #: Procedures: Echocardiographic Report: Transthoracic echocardiogram with complete 2D, M-Mode, and doppler examination. Indications: Chest Pain. Measurements: 2D/M Mode Doppler Measurement Value Normal Range Measurement Value Normal Range LVIDd 2D 5.4 [ 4.2 - 5.8 ] cm AV Peak Rj 1.2 [ 100.0 - 170.0 ] cm/sec LVIDs 2D 4.5 [ 2.5 - 4.0 ] cm AV Peak PG 6.0 [ 2.0 - 9.0 ] mmHg LVPWd 2D 1.0 [ 0.6 - 1.0 ] cm AI Peak PG 54.0 mmHg IVSd 2D 0.9 [ 0.6 - 1.0 ] cm AI Peak Rj 3.7 cm/sec AoR Diam 2D 2.9 [ 2.6 - 3.4 ] cm AI PHT 594.0 msec EDV 2D 142.0 [ 62.0 - 150.0 ] ml LVOT Peak Rj 1.0 [ 70.0 - 110.0 ] cm/sec ESV 2D 90.5 [ 21.0 - 61.0 ] ml LVOT Peak PG 4.0 [ 2.0 - 6.0 ] mmHg EF 2D 36.3 [ 52.0 - 72.0 ] percent MV E Peak Rj 0.7 [ 60.0 - 130.0 ] cm/sec LA Dimen 2D 4.3 [ 3.0 - 4.0 ] cm MV A Peak Rj 0.6 [ 100.0 - 120.0 ] cm/sec MV E/A 1.1 [ 0.8 - 1.5 ] ratio MV Decel Time 197 [ 104 - 258 ] msec MV E/A 1.1 [ 0.8 - 1.5 ] ratio TR Peak Rj 2.6 [ 100.0 - 280.0 ] cm/sec TR Peak PG 28.0 mmHg RVSP 31.0 [ 10.0 - 36.0 ] mmHg RA Pressure 3.0 mmHg Findings: Left Ventricle: Normal left ventricular cavity size. Normal left ventricular wall thickness. Moderate left ventricular systolic dysfunction. Ejection fraction is visually estimated at 40 %. Tissue Doppler/Mitral Doppler indices are consistent with pseudonormalization with mildly elevated left atrial pressure (Stage II diastolic dysfunction). These segments of the LV are akinetic inferior base segment, apical cap and apical septum segment. Right Ventricle: Normal right ventricular size. Normal right ventricular systolic function. Left Atrium: There is mild enlargement of left atrium. Right Atrium: The right atrium is normal in size. Mitral Valve: Mitral valve leaflets appear mildly thickened. Mild mitral annular calcification. Mild mitral valve regurgitation. Aortic Valve: No hemodynamically significant aortic stenosis by doppler. Aortic cusps appear mildly calcified. Trace aortic valve regurgitation. Tricuspid Valve: Normal appearance of the tricuspid valve. Estimated peak PA systolic pressure 31 mmHg. There is mild tricuspid regurgitation. Pulmonic Valve: Pulmonic valve not well visualized. Pericardium: Normal pericardium with no significant pericardial effusion. Aorta: Normal aortic root. IVC: Normal size and normal respiratory collapse consistent with normal right atrial pressure. Conclusions: Moderately reduced left ventricular systolic function with multi vessel distribution wall motion abnormalities as described. Pseudonormal diastolic function. Mild left atrial enlargement. Mild mitral and tricuspid regurgitation with borderline pulmonary pressures. Trace aortic regurgitation. Electronically Signed By: Rochelle Odell 2019-02-01 15:48:27 PDT Hospital Course 63 yo with history of CAD, PCI x 3, most recent about three years ago presents w ith chest pain starting last night. The pain lasted for about an hour and was midsternal. At present he has a mild lingering discomfort. He and his just moved here from [place] one month ago; all prior cardiac care was in [place]. He has an appointment with a door core assembler on 02/10/19. He is not very active, is dyspneic on exertion for the past one month. Troponin is negative, stress thallium test is negative for ischemia. Echocardiography with LVEF 40%. He is put on coreg and losartan for ischemic car diomyopathy and systolic CHF treatment. He will follow up with cardiology for medication adjustment. Home Meds Active Scripts Losartan Potassium* (Cozaar*) 25 Mg Tablet, 25 MG PO DAILY for 30 Days, TAB Prov:JUAN CARLOS HITCHCOCK MD 02/02/19 Carvedilol* (Carvedilol*) 3.125 Mg Tablet, 3.125 MG PO BID for 30 Days, TAB Prov:JUAN CARLOS HITCHCOCK MD 02/02/19 Reported Medications Atorvastatin* (Atorvastatin*) 40 Mg Tablet, 40 MG PO QHS, #30 TAB 02/01/19 Omeprazole* (Omeprazole*) 20 Mg Capsule.dr, 20 MG PO DAILY, #30 CAP 02/01/19 Clopidogrel Bisulfate* (Clopidogrel Bisulfate*) 75 Mg Tablet, 75 MG PO DAILY, #30 TAB 02/01/19 Aspirin Ec (Aspir 81) 81 Mg Tablet.dr, 81 MG PO DAILY, #30 TAB 02/01/19 Metformin Hcl* (Metformin Hcl*) 500 Mg Tablet, 500 MG PO WITH BREAKFAST, #30 TAB 02/01/19 Follow-up Plan PCP and cardiology in one week Primary Care Provider Andry Shell Pending Labs Laboratory Tests Test 02/01/19 17:31 02/01/19 22:17 02/02/19 06:16 02/02/19 06:29 Bedside 180 187 181 Glucose mg/dL (70-220) mg/dL (70-220) mg/dL (70-220) White Blood 6.9 Count 10^3/ul (4.8-1 0.8) Red Blood 4.77 Count 10^6/ul (4.70- 6.10) Hemoglobin 14.6 g/dl (14.0-18. 0) Hematocrit 43.6 % (42.0-52.0) Mean 91.4 Corpuscular fl (82.0-101.0 Volume ) Mean 30.6 Corpuscular pg (29.0-33.0) Hemoglobin Mean 33.5 Corpuscular g/dl (32.0-37. Hemoglobin Conc 0) ent Red Cell 11.8 Distribution % (11.5-14.5) Width Platelet Count 231 10^3/UL (140-4 15) Mean Platelet 11.9 Volume fl (7.4-10.4) Immature 0.400 Granulocytes % % (0.001-0.429 ) Neutrophils % 52.2 % (39.0-77.0) Lymphocytes % 28.7 % (15.0-51.0) Monocytes % 8.2 % (0.0-11.0) Eosinophils % 9.8 % (0.0-7.0) Basophils % 0.7 % (0.0-2.0) Nucleated Red 0.0 Blood Cells % /100WBC (0.0-0 .0) Immature 0.030 Granulocytes # 10^3/ul (0.0-0 .031) Neutrophils # 3.6 10^3/ul (1.6-7 .5) Lymphocytes # 2.0 10^3/ul (0.8-2 .9) Monocytes # 0.6 10^3/ul (0.3-0 .9) Eosinophils # 0.7 10^3/ul (0.0-0 .5) Basophils # 0.1 10^3/ul (0.0-0 .1) Nucleated Red 0.0 Blood Cells # 10^3/ul (0.0-0 .0) Sodium Level 140 mmol/L (135-14 4) Potassium 4.3 Level mmol/L (3.5-5. 1) Chloride Level 101 mmol/L (97-110 ) Carbon Dioxide 29 Level mmol/L (21-31) Anion Gap 10 (5-13) Blood Urea 14 Nitrogen mg/dl (7-20) Creatinine 1.01 mg/dl (0.61-1. 24) Est Glomerular > 60 Filtrat mL/min (>60) Rate mL/min Glucose Level 189 mg/dl (70-220) Calcium Level 9.9 mg/dl (8.4-10. 2) Phosphorus 4.1 Level mg/dl (2.5-4.9 ) Magnesium 1.7 Level mg/dl (1.7-2.5 ) Test 02/02/19 08:15 02/02/19 11:54 Bedside 169 229 Glucose mg/dL (70-220) mg/dL (70-220) JUAN CARLOS HITCHCOCK MD February 02, 2019 15:24
== END 2019-02-02 18:12 | disposition home or self-care (01) ==
LOC: E/R 19:06 → MS3 21:57 → TEL 02-01 19:35
PROVIDERS: ADMIT Internal Medicine; ATTEND Internal Medicine
DX: R07.9 Chest pain, unspecified (principal); I11.0 Hypertensive heart disease with heart failure; I50.22 Chronic systolic (congestive) heart failure; E11.9 Type 2 diabetes mellitus without complications; I25.10 Atherosclerotic heart disease of native coronary artery without angina pectoris; Z95.5 Presence of coronary angioplasty implant and graft; I25.5 Ischemic cardiomyopathy; E78.5 Hyperlipidemia, unspecified
CPT/HCPCS: 36415; 71045; 78452; 80048; 80053; 80061; 82550; 82553; 82962; 83036; 83735; 84100; 84443; 84484; 85025; 93005; 93017; 93306; A9500; A9505; J1650; J2785; Z7500; Z7502; Z7610; G0378